=== PATIENT | female | born 1960 | race African-American/Black ===

== ENCOUNTER 2017-10-10 17:08 | Emergency (ER) | payer OTHER ==
[~2017-10-10] VITALS: Ht 157.5 cm; Wt 71.0 kg
[2017-10-10 23:59] VITALS: BP 125/77
[2017-10-11] MEDS ORDERED: ACYCLOVIR 400 MG TABLET PO ONE
[2017-10-11] MEDS ORDERED: HYDROCODONE/ACETAMINOPHEN 5/325MG TABLET PO ONE
== END 2017-10-11 00:16 | disposition home or self-care (01) ==
LOC: ER 18:00
DX: B02.9 Zoster without complications (principal); R51 Headache; R03.0 Elevated blood-pressure reading, without diagnosis of hypertension; F12.10 Cannabis abuse, uncomplicated
CPT/HCPCS: 99283; Z7610